=== PATIENT | female | born 1975 | race Caucasian/White ===

== ENCOUNTER 2024-06-14 22:18 | Emergency (ER) | payer OTHER ==
[~2024-06-14] VITALS: Ht 172.7 cm; Wt 86.0 kg
[~2024-06-14 22:18] MED LIST: AMOXICILLIN500 MG PO; NAPROXEN500 MG PO
[2024-06-14] MEDS ORDERED: IBUPROFEN 600 MG/TAB PO ONE (22:45)
[2024-06-14] MEDS ORDERED: Diph, Acellular Pertussis, Tet 0.5 ML/VIAL (Tdap) SDV IM ONE (22:45)
[2024-06-14] MEDS ORDERED: ACETAMINOPHEN 500 MG TAB PO ONE (22:45)
[2024-06-15 00:05] VITALS: BP 167/65
== END 2024-06-15 00:05 | disposition home or self-care (01) | DRG 605 ==
LOC: ED 22:18
PROC: 0HQ0XZZ Repair Scalp Skin, External Approach (ICD-10-PCS; principal; 2024-06-14)
DX: S01.01XA Laceration without foreign body of scalp, initial encounter (principal); S90.512A Abrasion, left ankle, initial encounter; S20.212A Contusion of left front wall of thorax, initial encounter; S90.02XA Contusion of left ankle, initial encounter; V13.4XXA Pedal cycle driver injured in collision with car, pick-up truck or van in traffic accident, initial encounter

== ENCOUNTER 2024-06-21 09:48 | Emergency (ER) | payer OTHER ==
[~2024-06-21] VITALS: Ht 172.7 cm; Wt 81.0 kg
[2024-06-21 10:24] VITALS: BP 163/83
== END 2024-06-21 10:28 | disposition home or self-care (01) | DRG 605 ==
LOC: ED 09:48
DX: S01.01XA Laceration without foreign body of scalp, initial encounter (principal); X58.XXXA Exposure to other specified factors, initial encounter